=== PATIENT | male | born 1965 | race Caucasian/White ===

== ENCOUNTER 2020-09-03 00:33 | Outpatient (CLI) | payer OTHER, SELFPAY ==
[2020-09-03 21:24] LABS: SARS-CoV-2 RNA PCR Negative
== END 2020-09-03 00:34 | disposition home or self-care (01) ==
LOC: ANHCOVIDDT 00:34
PROVIDERS: PCP Family Medicine Adolescent Medicine; Visit Provider Internal Medicine Gastroenterology
DX: Z01.812 Encounter for preprocedural laboratory examination (principal); Z20.828 Contact with and (suspected) exposure to other viral communicable diseases
CPT/HCPCS: 87635; C9803; U0003

== ENCOUNTER 2020-09-06 01:24 | Day surgery (SDC) | payer OTHER, SELFPAY ==
[2020-08-25 15:58] VITALS: BMI 27.2
[2020-09-06 06:38] VITALS: BMI 27.1
[2020-09-06 06:48] VITALS: BP 144/98; PULSE 69; RESP 18; TEMP 35.9; O2SAT 97
[2020-09-06] MEDS: LACTATED RINGERS 1,000 ML 150 ML IV CONT (07:06)
--- NOTE | 2020-09-06 07:08 | WPDANESEPPF ---
Anes - Initial Pre Proc Eval Procedure: Operation Date: 09/06/20 08:00 Proposed Procedures p Screening Colonoscopy - Charles Rice MD Date/Time: 09/06/20 07:08 Surgeon: Charles Rice MD Pre Op Diagnosis: Neoplasm Screening Patient Data Age: 55 Gender: M Height: 5 ft 11 in Weight: 88.4 kg Last Vital Signs Temp 96.7 F L 09/06/20 06:48 Pulse 69 09/06/20 06:48 Resp 18 09/06/20 06:48 BP 144/98 H 09/06/20 06:48 Pulse Ox 97 09/06/20 06:48 Allergies Allergy/AdvReac Type Severity Reaction Status Date / Time No Known Allergies Allergy Verified 09/06/20 06:37 Home Medications Medication Instructions Recorded Confirmed Type etanercept 50 mg/mL (1 mL) 50 mg SUBCUT WEEKLY 08/03/20 08/25/20 History subcutaneous syringe folic acid 1 mg tablet 1 mg PO DAILY 08/03/20 08/25/20 History meloxicam 15 mg tablet 15 mg PO DAILY 08/03/20 08/25/20 History methotrexate sodium 2.5 mg tablet 15 mg PO WEEKLY 08/03/20 08/25/20 History trazodone 100 mg PO HS 08/25/20 08/25/20 History Patient hx anesthesia problems: none Family hx anesthesia problems: none PMFSH Past Medical History Medical History (Updated 09/06/20 @ 07:08 by Laron Bone MD) Rheumatoid arthritis Family History Family History (Updated 09/06/16 @ 12:30 by DOCTOR UNKNOWN) Other Hypertension Social History Social History Smoking status: Never smoker Alcohol intake: current Drinks per week: 14 Substance use: never Substance use type: does not use Living arrangements: with family Spiritual care concerns: No Anes - Eval Final PreProcedure Day of Procedure 09/06/20 07:08 Patient weight: normal Heart: regular rate and rhythm Lungs: clear to auscultation Airway: Mallampati scale class II Neurological: alert and oriented Last oral intake: >/= 8 hours ASA classification: II Emergent: no Anesthetic plan: proceed Anesthesia type and monitoring: general GIVS and standard monitoring Informed Consent: The patient's anesthetic plan and its attendant risks and benefits were discussed with the patient/family/POA. Questions were solicited and answers provided to the satisfaction of the patient/family/POA.
[2020-09-06] MEDS: SIMETHICONE ORAL SUSPENSION 20 MG/0.3 ML 30 ML BOTTLE 0.6 ML IRRIGATION (07:38)
--- NOTE | 2020-09-06 07:47 | WPDGICN ---
Assessment and Plan Assessment and plan (1) Encounter for screening colonoscopy: Code(s): Z12.11 - Encounter for screening for malignant neoplasm of colon Status: Acute Assessment and Plan: Patient presents for screening colonoscopy because of his age. Further recommendations will be given after endoscopy. He appears to be at average risk for colon polyps. GI Consult Note Consult date/time: 09/06/20 07:47 HPI: Jimy Keith is a 55 year old male Seen in evaluation at the request of Dr. Belcher. Patient presents for neoplasia screening colonoscopy. Patient's current weight appetite bowel movements are normal. He denies abdominal pain. He has had no bleeding. His family history is noncontributory. Review of Systems Review of Systems: All systems reviewed & are unremarkable except as noted in HPI and below PMFSH Past Medical History Medical History (Updated 09/06/20 @ 07:48 by Charles Rice MD) Rheumatoid arthritis Family History Family History (Updated 09/06/16 @ 12:30 by DOCTOR UNKNOWN) Other Hypertension Social History Social History Smoking status: Never smoker Alcohol intake: current Drinks per week: 14 Substance use: never Substance use type: does not use Living arrangements: with family Spiritual care concerns: No Meds Home Medications and Allergies Home Medications Medication Instructions Recorded Confirmed Type etanercept 50 mg/mL (1 mL) 50 mg SUBCUT WEEKLY 08/03/20 08/25/20 History subcutaneous syringe folic acid 1 mg tablet 1 mg PO DAILY 08/03/20 08/25/20 History meloxicam 15 mg tablet 15 mg PO DAILY 08/03/20 08/25/20 History methotrexate sodium 2.5 mg tablet 15 mg PO WEEKLY 08/03/20 08/25/20 History trazodone 100 mg PO HS 08/25/20 08/25/20 History Allergies Allergy/AdvReac Type Severity Reaction Status Date / Time No Known Allergies Allergy Verified 09/06/20 06:37 Vital Signs Vital Signs - 24 hr 09/06/20 06:48 Temperature 96.7 F L Pulse Rate 69 Respiratory Rate 18 Blood Pressure 144/98 H Pulse Oximetry 97 Exam Narrative: Exam Narrative: Physical exam reveals patient to be alert. Vital signs stable. HEENT exam unremarkable. Lungs are clear to auscultation and percussion. Heart is without murmur or extra sounds. Abdominal exam bowel sounds are present soft nontender with no organomegaly. Digital external rectal exam normal.
[2020-09-06 07:49] VITALS: BP 119/77; PULSE 82; RESP 21; O2SAT 98
[2020-09-06 07:59] VITALS: BP 113/74; PULSE 67; RESP 20; O2SAT 98
[2020-09-06 08:09] VITALS: BP 132/89; PULSE 64; RESP 22; O2SAT 100
== END 2020-09-06 08:30 | disposition home or self-care (01) ==
PROVIDERS: PCP Family Medicine Adolescent Medicine; Visit Provider Internal Medicine Gastroenterology
PROC: 0DJD8ZZ Inspection of Lower Intestinal Tract, Via Natural or Artificial Opening Endoscopic (ICD-10-PCS; CPT 45378; principal; 2020-09-06 08:00)
DX: Z12.11 Encounter for screening for malignant neoplasm of colon (principal); M06.9 Rheumatoid arthritis, unspecified; K57.30 Diverticulosis of large intestine without perforation or abscess without bleeding; K64.8 Other hemorrhoids
CPT/HCPCS: 45378; 87635; C9803; J2001; J2704; J7120; U0003

== ENCOUNTER 2020-10-11 17:09 | Outpatient (CLI) | payer OTHER, SELFPAY ==
--- NOTE | ~2020-10-11 | MR_ITS ---
EXAMINATION: MR cervical spine wo con DATE: 10/11/2020 17:51 INDICATION: Right-sided cervical radiculopathy. TECHNIQUE: Magnetic resonance imaging (MRI) of the cervical spine was performed without intravenous c ontrast. Sequences included sagittal T2-weighted FSE, sagittal STIR FSE, sagittal T1-weighted FSE, ax ial MERGE, and axial T2-weighted FSE. COMPARISON: Cervical spine MRI 06/05/2012 FINDINGS: There is kyphosis of cervical spine. There is 2 mm retrolisthesis of C5 on C6. Vertebral darrius dy heights are normal. There is interbody fusion at C5-C6. There is mildly decreased disc height at C 4-C5 and mildly decreased disc height at C6-C7. The spinal cord signal intensity is normal. The follo wing disc levels are specifically discussed: C2-C3: The disc does not extend beyond the endplate margin. There is no uncovertebral joint osteoarth ritis. There is severe right and mild left facet joint osteoarthritis. There is mild right neural for aminal stenosis. There is no central canal stenosis. C3-C4: The disc does not extend beyond the endplate margin. There is mild left uncovertebral joint os teoarthritis. There is severe right and mild left facet joint osteoarthritis. There is moderate right and mild left neural foraminal stenosis. There is no central canal stenosis. C4-C5: The disc is bulging. There is severe bilateral uncovertebral joint osteoarthritis. There is se josé bilateral facet joint osteoarthritis. There is moderate bilateral neural foraminal stenosis. The re is moderate central canal stenosis with ventral and dorsal indentation of the spinal cord. C5-C6: There is no uncovertebral joint hypertrophy. There is no facet joint hypertrophy. There is no neural foraminal stenosis. There is no central canal stenosis. C6-C7: The disc is bulging. There is severe right and moderate left uncovertebral joint osteoarthriti s. There is moderate bilateral facet joint osteoarthritis. There is moderate right and mild left neur al foraminal stenosis. There is mild central canal stenosis. C7-T1: The disc does not extend beyond the endplate margin. There is no uncovertebral joint osteoarth ritis. There is severe right and mild left facet joint osteoarthritis. There is mild right neural for aminal stenosis. There is no central canal stenosis. IMPRESSION: 1. Moderate cervical spondylosis, worsened from 06/05/2012. 2. Interbody fusion at C5-C6. Reviewed, dictated and finalized at location A. CT MAIL COORDINATOR
== END 2020-10-11 17:10 | disposition home or self-care (01) ==
PROVIDERS: PCP Family Medicine Adolescent Medicine; Visit Provider Family Medicine Adolescent Medicine
DX: M47.22 Other spondylosis with radiculopathy, cervical region (principal); Z98.1 Arthrodesis status
CPT/HCPCS: 72141

== ENCOUNTER 2020-10-27 00:10 | Outpatient (CLI) | payer OTHER, SELFPAY ==
[2020-10-27 17:28] LABS: SARS-CoV-2 RNA PCR Negative
== END 2020-10-27 00:11 | disposition home or self-care (01) ==
LOC: ANHCOVIDDT 00:11
PROVIDERS: PCP Family Medicine Adolescent Medicine; Visit Provider Internal Medicine Critical Care Medicine
DX: Z01.812 Encounter for preprocedural laboratory examination (principal); Z20.822 Contact with and (suspected) exposure to COVID-19
CPT/HCPCS: C9803; U0003; U0005

== ENCOUNTER 2020-10-29 09:47 | Outpatient (CLI) | payer OTHER, SELFPAY ==
--- NOTE | 2020-11-27 22:02 | WPDSLEEPSTUD ---
Sleep Study Date of Study: 10/29/20 Ordering Provider: Edwin Marti MD Interpreting Physician: Rosio Bacon MD Sleep Study Type: Polysomnogram Height: 1.8 m Weight: 87.09 kg Body Mass Index: 26.7 Neck Circumference: 40.64 cm Craig: 4 Reason for Sleep Study restless sleep, anxious, difficulty returning to sleep Sleep History Jimy Keith is a 55-year-old man who complains of sleeping in short episodes, waking up feeling anxious, and having difficulty returning to sleep. This is been going on for over 3 months. He has been taking Trazodone to help go to sleep. He occasionally awakens from sleep feeling short of breath. He never awakens with heartburn, belching or coughing. He occasionally snores and occasionally it is loud enough that others complain about it. He occasionally has trouble sleeping with a cold. He rarely wakes up gasping for breath at night. He occasionally has breathing problems at night observed by others. He occasionally sweats excessively at night. He rarely notices his heart pounding or beating irregularly at night. He never falls asleep during the day, does not fall asleep involuntarily, does not fall asleep while driving and does not fall asleep while exerting physical effort. He does not have loss of muscle tone with strong emotion. He does not have daytime difficulties due to excessive sleepiness. He works in a warehouse. He does not feel paralyzed on waking or falling asleep. He does not have vivid dreamlike scenes upon awakening or falling asleep. He is rarely afraid to go to sleep. He rarely has nightmares. He occasionally remembers his dreams. His occasionally has racing thoughts. He does not feel sad or depressed. He occasionally has anxiety. He does not have muscular tension, does not notice parts of his body jerking, does not kick at night and does not have crawling aching feelings in his legs at night. He denies any kind of leg pain at night. He does not have morning jaw pain. He does not grind his teeth during sleep, does not have pain during the day or is awakened by pain at night. He does not wake up feeling stiff in the morning with sore achy muscles, does not wake up with pain in the neck and spine. Normal bedtime is 9-10 p.m. falling asleep quickly, waking once or twice at night. However when he awakens, it is very difficult for him to return to sleep. He may stay awake a few hours. He wakes in the morning at 4:00 a.m.. On the weekends, he may stay awake later, between 10:00 and 11:00 p.m. and wake up a little later, between 4:00 and 5:00 a.m.. He estimates getting 4-5 hours of sleep most nights. He does not usually take naps. A short nap may be refreshing. He occasionally awakens feeling refreshed. He never has morning headaches. He does not have heartburn at night. Habits: Never smoked tobacco. He drinks caffeinated tea. He drinks 1 or 2 beers on the weekends. REPLACED BY [facility] Past Medical History Medical History Rheumatoid arthritis Family History Family History Other Hypertension Social History Social History Smoking status: Never smoker Alcohol intake: current Drinks per week: 14 Substance use: never Substance use type: does not use Spiritual care concerns: No Medications Home Medications Medication Instructions Recorded Confirmed Type etanercept 50 mg/mL (1 mL) 50 mg SUBCUT WEEKLY 08/03/20 08/25/20 History subcutaneous syringe folic acid 1 mg tablet 1 mg PO DAILY 08/03/20 08/25/20 History meloxicam 15 mg tablet 15 mg PO DAILY 08/03/20 08/25/20 History methotrexate sodium 2.5 mg tablet 15 mg PO WEEKLY 08/03/20 08/25/20 History trazodone 100 mg PO HS 08/25/20 08/25/20 History Sleep Procedure This test was performed using the [employer] multiple channel system including
[2020-11-29 11:30] VITALS: BMI 26.7
== END 2020-10-29 09:48 | disposition home or self-care (01) ==
LOC: ANHCSM 09:47
PROVIDERS: PCP Family Medicine Adolescent Medicine; Visit Provider Family Medicine Adolescent Medicine
DX: G47.00 Insomnia, unspecified (principal); G47.33 Obstructive sleep apnea (adult) (pediatric)
CPT/HCPCS: 95810

== ENCOUNTER → 2021-09-15 15:51 | Outpatient (CLI) | payer OTHER, SELFPAY ==
--- NOTE | ~2021-09-15 | CT_ITS ---
EXAMINATION: CT LE RT wo con DATE: 09/15/2021 16:07 INDICATION: Displaced intra-articular fracture of the right calcaneus TECHNIQUE: High resolution computed tomography (CT) of the right ankle, mid and hindfoot was performe d without intravenous contrast. Additional sagittal and coronal reconstructions were performed. Autom ated exposure control and iterative reconstruction technique were employed. The dose-length product w as 180.40 mGy-cm. 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 There is a fracture across the single fixation screw which occurs in the calcaneu s approximately 5 mm below the level of the fracture plane. No other fractures identified. Again note d is is an irregular cortical contour involving the adjacent cortices of the calcaneus and navicular suggesting possible prior calcaneonavicular coalition resection. Mild osteoarthritis at the subtalar joint and at the articulation between the navicula and the cuboid. Screw tracks at the lateral side o f the posterior tuberosity of the calcaneus suggesting prior Achilles tendon repair. Enthesopathy of the distal Achilles tendon which appears thickened with minimal enthesopathic calcification. Tendinop athy with fusiform thickening of the peroneus longus and brevis tendons at the level of the retromall eolar groove. Additional dystrophic calcifications along the central component of the plantar aponeur osis suggesting chronic plantar fasciitis or sequela of chronic injury or surgery. IMPRESSION: 1. 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 2. Tendinopathy of the peroneus longus and brevis tendons. 3. Enthesopathy of the distal Achilles tendon with screw anchors at its calcaneal insertion suggestin g prior tendon repair or repositioning procedure. 4. Mild dystrophic calcifications within the central component of the proximal plantar aponeurosis alva ggesting chronic plantar fasciitis or prior trauma or surgery. 5. 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 Reviewed, dictated and finalized at location D. OR RISK ANALYST IMPRESSION: 1. Chronic nonunion of a fracture at the dorsolateral aspect of the anterior pr ocess of the calcaneus with fracture of the single fixation screw. 2. Tendinopathy of the peroneus longus and brevis tendons. 3. Enthesopathy of the distal Achilles tendon with screw anchors at its calcane al insertion suggesting prior tendon repair or repositioning procedure. 4. Mild dystrophic calcifications within the central component of the proximal plantar aponeurosis suggesting chronic plantar fasciitis or prior trauma or dari virgil. 5. 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
== END ==
PROVIDERS: PCP Family Medicine Adolescent Medicine
DX: S92.061K Displaced intraarticular fracture of right calcaneus, subsequent encounter for fracture with nonunion (principal); M25.571 Pain in right ankle and joints of right foot; M19.071 Primary osteoarthritis, right ankle and foot; Z68.26 Body mass index [BMI] 26.0-26.9, adult; M67.873 Other specified disorders of tendon, right ankle and foot; M76.891 Other specified enthesopathies of right lower limb, excluding foot; Z79.899 Other long term (current) drug therapy
CPT/HCPCS: 73700